=== PATIENT | female | born 1965 | race African-American/Black ===

== ENCOUNTER 2023-05-05 08:42 | Day surgery (SDC) | payer OTHER ==
[~2023-05-05] VITALS: Ht 165.1 cm; Wt 65.3 kg
[2023-05-05] MEDS ORDERED: fentaNYL citrate 0.05 MG/ML VIAL ONE (09:21)
[2023-05-05] MEDS ORDERED: diphenhydrAMINE 50 MG/ML VIAL ONE (09:21)
[2023-05-05] MEDS ORDERED: MIDAZOLAM 5 MG/5 ML VIAL ONE (09:22)
[2023-05-05] MEDS ORDERED: LIDOCAINE 2% 100 MG/5 ML UJET TP ONE (09:22)
[2023-05-05] MEDS ORDERED: MIDAZOLAM 5 MG/5 ML VIAL IV ONE (14:25)
[2023-05-05] MEDS ORDERED: fentaNYL citrate 0.05 MG/ML VIAL IVP ONE (14:25)
[2023-05-05] MEDS ORDERED: diphenhydrAMINE 50 MG/ML VIAL IVP ONE (14:25)
== END 2023-05-05 10:52 | disposition home or self-care (01) ==
LOC: MOR 08:42 → MMU 08:43 → EDBD 09:00 → MOR 10:52
PROVIDERS: ATTEND Internal Medicine Gastroenterology
DX: Z12.11 Encounter for screening for malignant neoplasm of colon (principal); D12.0 Benign neoplasm of cecum; Z98.51 Tubal ligation status; Z88.0 Allergy status to penicillin
CPT/HCPCS: 45385; J1200; J2250; J3010